=== PATIENT | female | born 1955 | race Caucasian/White ===

== ENCOUNTER 2021-09-17 10:00 | Outpatient (CLI) | payer OTHER, SELFPAY ==
--- NOTE | 2021-09-17 10:16 | MM_ITS ---
WS: [id number] BILATERAL SCREENING DIGITAL TOMOSYNTHESIS MAMMOGRAM WITH CAD HISTORY: HX OF ATYPICAL HYPERPLASIA COMPARISON: 09/02/2016 and 08/03/2013 Bilateral CC and MLO views with tomosynthesis and synthetic mammography submitted. Computer aided det ection analyzed. Breast composition: There are scattered areas of fibroglandular density. No suspicious masses, microc alcifications or architectural distortion. Overall the parenchymal pattern is similar to the prior st udies. Mild distortion in the anterior RIGHT breast is probably from prior surgery. Benign calcificat ions. MM/[id number] IMPRESSION: BI-RADS: 2-Benign FOLLOW UP: 1 Year Follow-up
== END 2021-09-17 10:01 | disposition home or self-care (01) ==
LOC: RAD 10:01
PROVIDERS: PCP Physician Assistant; Visit Provider Physician Assistant
DX: Z87.898 Personal history of other specified conditions (principal)
CPT/HCPCS: 77062